=== PATIENT | female | born 1985 | race Hispanic/Latino ===

== ENCOUNTER 2016-12-14 08:10 | Day surgery (SDC) | payer SELFPAY ==
[~2016-12-14] VITALS: Ht 162.6 cm; Wt 60.3 kg
[2016-12-14] VITALS (10 sets, daily range): BP systolic 109–135; BP diastolic 60–86; PULSE 77–98; RESP 9–18; O2SAT 95–100
[~2016-12-14 08:10] MED LIST: CeFAZolin Inj 2 GM in IV Premix 1 EACH IV ONE; HYDR-4003 PO
[2016-12-14] MEDS ORDERED: Ondansetron 2 mg/mL 2 mL Inj ONE (08:11)
[2016-12-14] MEDS ORDERED: Propofol 10,000 mCg/mL 20 mL Inj ONE (08:11)
[2016-12-14] MEDS ORDERED: Lidocaine PF 1% 30 mL Inj ONE (08:11)
[2016-12-14] MEDS ORDERED: Dexamethasone 4 mg/mL Inj ONE (08:11)
[2016-12-14] MEDS ORDERED: MetoCLOpramide 5 mg/mL 2 mL Inj ONE (08:11)
[2016-12-14] MEDS ORDERED: Phenylephrine/NS 100 mCg/mL 10 mL Syringe IVPUSH ONE (08:11)
[2016-12-14] MEDS: Lactated Ringer's 1,000 ML IV SCH ×2 (08:25→10:36)
[2016-12-14] MEDS: fentaNYL-PF 50 mCg/mL 2 mL Inj IVPUSH PRN ×4 (09:13→10:07)
[2016-12-14] MEDS ORDERED: Lactated Ringer's 500 ML IV PRN (09:46)
[2016-12-14] MEDS ORDERED: Lactated Ringer's 1,000 ML IV SCH (09:46)
--- NOTE | 2016-12-14 09:46 | PCM.HPANE ---
Patient Data Date of Service: Dec 14, 2016 Surgeon Admitting Provider: Attending Provider:Rashaad Hill DPM Primary Care Physician:Alejandro Other Provider:Debbie Dhaliwal Anesthesia Reason for Visit Right Ankle Fracture Ht/WT & BMI Height (Feet): 5 Height (Inches): 4.00 Weight (Kilograms): 60.328 Body Mass Index 22.00 Allergies Coded Allergies: No Known Allergies (Verified , 12/09/16) Past Anesthesia History Anesthesia History: Denies:: Fam Anesthesia Reaction, Fam Malignant Hypertherm Diabetes History Hx Diabetes?: No MRSA MRSA: No Medications Home Meds Incl Beta Brit: No Reported Medications Hydrocodone-Acetaminophen 5-325 mg 1 Each Tablet1 Tablet PO Q6H PRN For Pain Ref 0 12/09/16 History History of ENT Problems?: No Hx of Heart Problems?: No Hx of Respiratory Problem?: No Respiratory History: Denies:: Use of C-PAP Machine Hx Neurologic Problems?: No Hx of GI Problems?: No Hx of Problems?: No Female Hx: Denies:: Currently Skin History: Denies:: History Skin Disorders? Pressure Ulcers Hx Musculoskeletal Problems?: Yes Musculoskeletal History: Positive for:: Musculoskeletal Trauma (FALL ROLLERSKATING RT BIMALLEOLAR FX=CURRENT PROBLEM) Hx of Psycho/Social Problems?: Yes Psycho Social History: Positive for:: Anxiety Hx Surgeries?: No Hx Any Other Health Problems?: No Other History: Positive for:: Hospitalization (CHILDBIRTH) Denies:: Cancer Endocrine Disease Thyroid Disease Hx Diabetes: No Stop/Bang Treated for Sleep Apnea?: No Do You Have a CPAP Machine?: No S-Snoring: Do You Snore Loudly: No T-Tired: feel tired, fatigued: No O-Obsered: Observed not breath: No P-Blood Pressure: treated: No B- Body Mass Index > 35 kg/m2: No A- Age over 50: No N- Neck Large Circumference: No G- Gender Male: No BEE Total Score: 0 BEE Risk Assessment: Low Risk, <3 Yes Risk Assessment Category Category 1A: Patient has history of documented sleep apnea, and HAS NOT received any narcotic, sedative or anesthesia administration during this stay. Category 1B: Patient has history of documented sleep apnea, and HAS received any narcotic , sedative or anesthesia administration during this stay Category 2: Patient has SUSPECTED Obstructive Sleep Apnea, and HAS received any narcotic , sedative or anesthesia administration during this stay. Category 3: Patient has SUSPECTED Obstructive Sleep Apnea and HAS NOT received narcotic, sedative or anesthesia administration during this stay. Category 4: Outpatient in Procedural Areas with known sleep apnea or who screen positive for High Risk via the STOP/BANG questionnaire. Exam Exam Vital Signs Vital Signs Date Time Temp Pulse Resp B/P Pulse Ox O2 Delivery O2 Flow Rate FiO2 12/14/16 08:50 37.0 88 18 109/60 100 Room Air General Appearance: Alert, Oriented X3, Cooperative HEENT/AIRWAY: MP 2, Neck Movement (ok), Mouth Opening (wIDE) Lungs: Clear to Auscultation, Normal Air Movement Heart: Regular Rate/Rhythm, Normal S1, Normal S2 Meds/Labs/Diagnostics Admission Meds Current Medications Lactated Ringer's (Lr) 1,000 ml @ 120 mls/hr Q8H20M IV Last administered on t 08:25; Start 12/14/16 at 05:00; Stop 12/14/16 at 13:19 Labs S/P TUBAL Plan Impression Patient chart reviewed, patient interviewed and anesthestic plan with risks, benefits, and alternatives discussed, and informed consent obtained. NPO Status: 4AM WATER ASA Physical Status: ASA1 Normal Healthy Anesthetic Plan: GA Bene/Risks/Altern/Consents: Yes HP Complete Prior to Induction: Yes Eladio Jimenes MD Dec 14, 2016 09:03
[2016-12-14] MEDS ORDERED: fentaNYL-PF 50 mCg/mL 2 mL Inj IVPUSH PRN (09:50)
[2016-12-14] MEDS ORDERED: MetoCLOpramide 5 mg/mL 2 mL Inj IVPUSH PRN (09:50)
[2016-12-14] MEDS ORDERED: Labetalol 5 mg/mL 4 mL Inj IV PRN (09:50)
[2016-12-14] MEDS ORDERED: hydrALAZINE 20 mg/mL Inj IVPUSH PRN (09:50)
[2016-12-14] MEDS ORDERED: Dexamethasone 4 mg/mL Inj IVPUSH PRN (09:50)
[2016-12-14] MEDS ORDERED: Atropine 0.4 mg/mL Inj IVPUSH PRN (09:50)
[2016-12-14] MEDS ORDERED: EPHEDrine Sulfate 50 mg/mL Inj IVPUSH PRN (09:50)
[2016-12-14] MEDS ORDERED: Ondansetron 2 mg/mL 2 mL Inj IVPUSH PRN (09:50)
[2016-12-14] MEDS ORDERED: Phenylephrine 10,000 mCg/mL Inj IVPUSH PRN (09:50)
[2016-12-14] MEDS ORDERED: Bupivacaine-MPF 0.5% W/EPI 30 mL Inj INFILTRATE ONE (10:36)
--- NOTE | 2016-12-14 11:51 | PCM.ANEP1 ---
Post Anesthesia Phase 1 PACU Phase 1 Assessment Date of Service: Dec 14, 2016 Vital Signs PACU 36.3, HR 99, RR 31, BP 132/85, 100% 10L Vital Signs Date Time Temp Pulse Resp B/P Pulse Ox O2 Delivery O2 Flow Rate FiO2 12/14/16 08:50 37.0 88 18 109/60 100 Room Air Anesthetic Administered: GA Level of Alertness: Sleepy, easy to arouse CALLEJSA's with Equal Strength: Yes Pain: Yes Nausea or Vomiting: No Oxygen Delivery: Simple Mask Lungs: Normal Air Movement Eladio Jimenes MD Dec 14, 2016 11:51
[2016-12-14] MEDS: HYDROmorphone 1 mg/mL Inj IVPUSH PRN ×3 (12:04→12:31)
--- NOTE | 2016-12-14 12:04 | PCM.PODPO ---
Podiatry Operative Report Date of Service: Dec 14, 2016 Date of Service Dec 14, 2016 Pre Operative Diagnosis Right ankle fracture Post Operative Diagnosis Symptoms. Diagnosis Procedure Open reduction internal fixation right ankle Surgeon Surgeon: Rashaad Hill DPM Assistants: None Indication for Procedure Mild displacement of right distal fibular fracture Findings Mild displacement of right distal fibular fracture. Stable posterior malleolus fracture Details of Procedure Patient was identified in the preoperative holding area (comorbidities and allergies were identified and thoroughly discussed. The patient was transported into the operating room and placed on the operating room table in the normal supine position. The patient was then prepped and draped in the normal aseptic technique. Attention was referred to lateral aspect of the right lower extremity. A preoperative local block consisting of 20 mL of half percent Marcaine with epinephrine was given to the right ankle. A #10 blade was used to make a curvilinear incision directly overlying the lateral aspect of the distal fibular shaft and lateral malleolus. Most initially her skin a Metzenbaum scissor was utilized to bluntly dissected through subcutaneous tissue. All subcutaneous neurovascular structures were identified and retracted out of the surgical field. Sharp dissection was carried down through subcutaneous tissue directly down to bone and was reflected both anteriorly and posteriorly exposing the lateral aspect of the fibula the fibular fracture and the lateral malleolus. The fracture was identified and a moderate amount of hematoma was noted. Hematoma was debrided utilizing a curet from within the fracture site this area was then copiously flushed with large amounts of normal saline. The periosteal elevator was then utilized to free soft tissue from the midshaft of the distal fibula. The fracture was then manually reduced and a clamp was placed across the fracture site. A 3.5 mm fully threaded cortical screw was then inserted within normal lag fashion across the fracture site utilizing intraoperative C-arm x-ray to verify positioning. The clamp was removed and the ankle was placed through range of motion ensuring that the fracture would not displace. A Arthrex locking plate was then placed on the lateral aspect of the fibular shaft and lateral malleolus and the mixture of 2.7 and 3.5 locking screws were placed in the normal surgical fashion utilizing intraoperative C-arm guidance. Following internal fixation ankle was placed through range of motion and stressed under fluoroscopy to ensure no widening of the ankle mortise. No widening of the ankle mortise was noted. This wound was then copiously flushed large amounts of normal saline. Closure was performed utilizing number 2. 0 Vicryl subcutaneous closure was performed utilizing number 3. 0 Vicryl and subcuticular skin closure was performed utilizing number 4. 0 Vicryl. Mastisol and Steri-Strips were applied to the skin incision. A postoperative block consisting of 10 mL half percent Marcaine plain was given locally. The patient was then dressed utilizing Adaptic sterile 4 x 4 gauze Kerlix and a mildly compressive Briceño compression dressing with a posterior splint. No complications occurred during this procedure. Grafts, Implants: Implants-See Implant Record Complications There were no periprocedural complications identified. Condition Stable Anesthetic Administered: GA Catheters: None Output, Estimated Blood Loss: 20 Blood Admin during surgery: No Surgical Cast or Splint: Well-padded Short Leg Splint Surgical Specimen Removed: No Specimen sent to Pathology: No Post Operative Plan Ice and elevate right lower extremity Nonweightbearing right lower extremity Keep dressing clean dry and intact Discharged to home when stable Follow-up in the office in 1 week Pain medication as needed for severe pain only Contact office with any questions or concerns regarding care Rashaad Hill DPM Dec 14, 2016 12:03
[2016-12-14] MEDS: oxyCODONE-Acetamin 5-325 mg Tablet PO PRN ×2 (14:07→14:25)
--- NOTE | 2016-12-15 09:36 | PCM.ANEP2 ---
Post Anesthesia Evaluation ASA/CMS Post Anesthesia Date of Service: Dec 15, 2016 VS in Patient's Normal Range?: Yes Resp Stable; Airway Patent?: Yes CV Function & Hydration Stable: Yes Mental Status Recovered?: Yes Pain control Satisfactory?: Yes N/V Control Satisfactory?: Yes Eladio Jimenes MD Dec 15, 2016 09:36
== END 2016-12-14 23:59 | disposition home or self-care (01) ==
LOC: SAS 08:10
PROVIDERS: ATTEND Podiatrist Foot & Ankle Surgery
DX: S82.841A Displaced bimalleolar fracture of right lower leg, initial encounter for closed fracture (principal)
CPT/HCPCS: 27814; 76001; J0690; J1100; J1170; J2175; J2250; J2370; J2405; J2765; J7120